=== PATIENT | female | born 1985 | race Caucasian/White ===

== ENCOUNTER 2018-02-27 12:09 | Outpatient (CLI) | payer BC, OTHER ==
[~2018-02-27] VITALS: Ht 177.8 cm; Wt 138.6 kg
[2018-02-27 12:47] LABS: BASOPHILS # (AUTO) 0.02 x10^3/uL (0-0.1); BASOPHILS % (AUTO) 0 % (0-1); EOSINOPHILS # (AUTO) 0.06 x10^3/uL (0-0.4); EOSINOPHILS % (AUTO) 1 % (1-7); LYMPHOCYTES # (AUTO) 1.69 x10^3/uL (1-3.4); LYMPHOCYTES % (AUTO) 17 % (22-44); MD NO; MEAN CORPUSCULAR HEMOGLOBIN 27.1 pg (27.0-34.8); MEAN PLATELET VOLUME 9.3 fL (7.4-10.4); MONOCYTES # (AUTO) 0.51 x10^3/uL (0.2-0.8); MONOCYTES % (AUTO) 5 % (2-9); NEUTROPHILS # (AUTO) 7.46 x10^3/uL (1.8-6.8); NEUTROPHILS % (AUTO) 77 % (42-75); PLATELET COUNT 230 x10^3/uL (130-400); RED BLOOD COUNT 4.22 x10^6/uL (3.82-5.3); RED CELL DISTRIBUTION WIDTH 14.5 % (9.6-15.2)
[2018-02-27 12:53] LABS: ALANINE AMINOTRANSFERASE 15 U/L (12-78); ALBUMIN 2.7 g/dL (3.4-5.0); ANION GAP 9 mmol/L (5-15); CALCIUM 8.3 mg/dL (8.5-10.1); CHLORIDE 110 mmol/L (98-107); CREATININE 0.68 mg/dL (0.55-1.02)
[2018-02-27 12:55] LABS: ALKALINE PHOSPHATASE 86 U/L (45-117); BILIRUBIN,TOTAL 0.3 mg/dL (0.2-1.0); TOTAL PROTEIN 6.8 g/dL (6.4-8.2)
[2018-02-27 12:56] LABS: BILIRUBIN, DIRECT < 0.1 mg/dL (0.1-0.2)
[2018-02-27 13:18] LABS: MICROSCOPIC INDICATED
== END 2018-02-27 14:15 | disposition home or self-care (01) ==
LOC: LDOP 12:09
PROVIDERS: ATTEND Obstetrics & Gynecology
DX: O13.3 Gestational [pregnancy-induced] hypertension without significant proteinuria, third trimester (principal); O14.93 Unspecified pre-eclampsia, third trimester; Z3A.37 37 weeks gestation of pregnancy
CPT/HCPCS: 36415; 59025; 80053; 81001; 81050; 82248; 82570; 84156; 84550; 85025; 99201; G0463

== ENCOUNTER 2018-03-08 08:11 | Inpatient (IN) | payer OTHER ==
[~2018-03-08] VITALS: Ht 177.8 cm; Wt 137.7 kg
[2018-03-08] MEDS ORDERED: LACTATED RINGERS 1,000 ML IV SCH ×2 (08:13→08:30)
[2018-03-08] MEDS ORDERED: OXYTOCIN 30U/ 0.9% NaCL 500ML 500 ML IV SCH (08:13)
[2018-03-08 08:18] VITALS: BP 123/86
[2018-03-08] MEDS ORDERED: PLEASE ENTER HEIGHT AND WEIGHT MC SCH (08:30)
[2018-03-08] MEDS ORDERED: METOCLOPRAMIDE 5 MG/ML, 2ML IV ONE (08:30)
[2018-03-08] MEDS ORDERED: LACTATED RINGERS 1,000 ML IVBOLUS ONE (08:30)
[2018-03-08] MEDS ORDERED: SODIUM CITRATE/CITRIC ACID 30 ML UDC PO ONE (08:30)
[2018-03-08] MEDS ORDERED: PREN1TAB60 PO (08:35)
[2018-03-08 08:56] LABS: BASOPHILS # (AUTO) 0.03 x10^3/uL (0-0.1); BASOPHILS % (AUTO) 0 % (0-1); EOSINOPHILS # (AUTO) 0.05 x10^3/uL (0-0.4); EOSINOPHILS % (AUTO) 1 % (1-7); LYMPHOCYTES # (AUTO) 1.52 x10^3/uL (1-3.4); LYMPHOCYTES % (AUTO) 19 % (22-44); MD NO; MEAN CORPUSCULAR HEMOGLOBIN 27.4 pg (27.0-34.8); MEAN CORPUSCULAR HGB CONC 33.1 g/dL (32.4-35.8); MEAN CORPUSCULAR VOLUME 82.8 fL (80-100); MEAN PLATELET VOLUME 9.6 fL (7.4-10.4); MONOCYTES # (AUTO) 0.44 x10^3/uL (0.2-0.8); MONOCYTES % (AUTO) 6 % (2-9); NEUTROPHILS % (AUTO) 74 % (42-75); PLATELET COUNT 216 x10^3/uL (130-400); RED BLOOD COUNT 4.13 x10^6/uL (3.82-5.3); RED CELL DISTRIBUTION WIDTH 14.4 % (9.6-15.2)
[2018-03-08] MEDS ORDERED: OXYTOCIN 10 UNITS/ML, 1ML ONE (09:12)
[2018-03-08] MEDS ORDERED: CEFAZOLIN 1,000 MG ONE ×2 (09:12→09:49)
[2018-03-08] MEDS ORDERED: NEWBORN KIT ONE (09:12)
[2018-03-08] MEDS ORDERED: METOCLOPRAMIDE 5 MG/ML, 2ML ONE (09:12)
[2018-03-08] MEDS ORDERED: SODIUM CITRATE/CITRIC ACID 30 ML UDC ONE (09:12)
[2018-03-08] MEDS ORDERED: FENTANYL PF 100 MCG/2ML ONE (09:13)
[2018-03-08] MEDS ORDERED: OXYTOCIN 30U/ 0.9% NaCL 500ML 500 ML ONE (09:13)
[2018-03-08] MEDS ORDERED: KETOROLAC 30 MG/1 ML ONE (09:49)
[2018-03-08] MEDS: OXYTOCIN 30U/ 0.9% NaCL 500ML 500 ML IV SCH ×2 (11:27→21:27)
[2018-03-08] MEDS: LACTATED RINGERS 1,000 ML IV SCH ×4 (11:27→21:27)
[2018-03-08] MEDS ORDERED: MISOPROSTOL 200 MCG TABLET PO PRN (11:30)
[2018-03-08] MEDS ORDERED: MORPHINE SULFATE 4 MG/ML, 1ML IVPush PRN (11:30)
[2018-03-08] MEDS ORDERED: ONDANSETRON 2MG/ML, 2ML IV PRN ×2 (11:30)
[2018-03-08] MEDS ORDERED: OXYcodone 5 MG/5 ML ORAL.SOL UDC PO PRN (11:30)
[2018-03-08] MEDS: PRENATAL VIT/IRON/FA 1 EACH TABLET PO SCH (11:30)
[2018-03-08] MEDS: KETOROLAC 30 MG/1 ML IV SCH ×2 (11:30→17:38)
[2018-03-08] MEDS ORDERED: morphine SULFATE 10 MG/ML, 1ML IVPush PRN ×2 (11:30)
[2018-03-08] MEDS ORDERED: FENTANYL PF 100 MCG/2ML IV PRN (11:30)
[2018-03-08] MEDS ORDERED: PROMETHAZINE 25 MG/ML, 1ML IV PRN (11:30)
[2018-03-08] MEDS ORDERED: MEPERIDINE/PF 25MG/0.5ML IVPush PRN (11:30)
[2018-03-08] MEDS ORDERED: SIMETHICONE 80 MG CHEW TAB PO PRN (11:30)
[2018-03-08] MEDS ORDERED: OXYcodone 5 MG/5 ML ORAL.SOL UDC ONE (12:03)
[2018-03-08 13:30] VITALS: BP 124/78
[2018-03-08 17:00] VITALS: BP 142/78
[2018-03-08] MEDS: OXYcodone IR 5MG TABLET PO PRN (17:39)
[2018-03-08 18:48] LABS: BASOPHILS # (AUTO) 0.03 x10^3/uL (0-0.1); BASOPHILS % (AUTO) 0 % (0-1); EOSINOPHILS # (AUTO) 0.03 x10^3/uL (0-0.4); EOSINOPHILS % (AUTO) 0 % (1-7); LYMPHOCYTES # (AUTO) 2.01 x10^3/uL (1-3.4); LYMPHOCYTES % (AUTO) 17 % (22-44); MD NO; MEAN CORPUSCULAR HEMOGLOBIN 27.8 pg (27.0-34.8); MEAN CORPUSCULAR HGB CONC 33.3 g/dL (32.4-35.8); MEAN CORPUSCULAR VOLUME 83.7 fL (80-100); MEAN PLATELET VOLUME 9.6 fL (7.4-10.4); MONOCYTES # (AUTO) 0.52 x10^3/uL (0.2-0.8); MONOCYTES % (AUTO) 4 % (2-9); NEUTROPHILS # (AUTO) 9.51 x10^3/uL (1.8-6.8); NEUTROPHILS % (AUTO) 79 % (42-75); PLATELET COUNT 195 x10^3/uL (130-400); RED BLOOD COUNT 3.75 x10^6/uL (3.82-5.3); RED CELL DISTRIBUTION WIDTH 14.5 % (9.6-15.2)
[2018-03-08 20:06] VITALS: BP 134/83
[2018-03-08] MEDS: DOCUSATE 100 MG CAPSULE PO PRN (21:25)
[2018-03-08] MEDS: OXYcodone/APAP 5/325MG TABLET PO PRN (21:26)
[2018-03-09 00:01] VITALS: BP 110/72
[2018-03-09] MEDS: KETOROLAC 30 MG/1 ML IV SCH ×4 (00:26→18:26)
[2018-03-09] MEDS: LACTATED RINGERS 1,000 ML IV SCH ×4 (03:27→17:27)
[2018-03-09 03:56] VITALS: BP 133/84
[2018-03-09] MEDS: OXYcodone IR 5MG TABLET PO PRN ×4 (05:22→21:57)
[2018-03-09] MEDS: OXYTOCIN 30U/ 0.9% NaCL 500ML 500 ML IV SCH ×2 (07:27→17:27)
[2018-03-09 07:45] VITALS: BP 138/81
[2018-03-09] MEDS: PRENATAL VIT/IRON/FA 1 EACH TABLET PO SCH (09:00)
[2018-03-09] MEDS: DOCUSATE 100 MG CAPSULE PO PRN ×2 (09:27→21:57)
[2018-03-09] MEDS: OXYcodone/APAP 5/325MG TABLET PO PRN (12:32)
[2018-03-09 20:10] VITALS: BP 129/83
[2018-03-10] MEDS: KETOROLAC 30 MG/1 ML IV SCH ×2 (00:55→08:29)
[2018-03-10] MEDS: OXYcodone/APAP 5/325MG TABLET PO PRN ×2 (07:49→14:18)
[2018-03-10] MEDS: PRENATAL VIT/IRON/FA 1 EACH TABLET PO SCH (07:49)
[2018-03-10 08:03] VITALS: BP 122/78
[2018-03-10] MEDS: DOCUSATE 100 MG CAPSULE PO PRN (08:29)
[2018-03-10] MEDS ORDERED: MEASLES,MUMPS&RUBELLA VACC/PF 0.5 ML SQ-VACC ONE ×2 (17:23→18:00)
[2018-03-10 19:35] VITALS: BP 137/82
[2018-03-11] MEDS: OXYcodone/APAP 5/325MG TABLET PO PRN (00:57)
[2018-03-11] MEDS: DOCUSATE 100 MG CAPSULE PO PRN ×2 (00:57→07:58)
[2018-03-11] MEDS: IBUPROFEN 600 MG TABLET PO PRN ×2 (00:57→10:44)
[2018-03-11] MEDS: PRENATAL VIT/IRON/FA 1 EACH TABLET PO SCH (07:58)
[2018-03-11 08:12] VITALS: BP 133/84
[2018-03-11] MEDS ORDERED: IBUP-1222 PO (15:50)
[2018-03-11] MEDS ORDERED: OXYC-302 PO (15:51)
== END 2018-03-11 17:30 | disposition home or self-care (01) | DRG 765 ==
LOC: LDIP 08:11 → 2NW 13:37
PROVIDERS: ADMIT Obstetrics & Gynecology; ATTEND Obstetrics & Gynecology
PROC: 10D00Z1 Extraction of Products of Conception, Low, Open Approach (ICD-10-PCS; principal; 2018-03-08)
DX: O99.214 Obesity complicating childbirth (principal); Z68.41 Body mass index [BMI] 40.0-44.9, adult; Z37.0 Single live birth; Z3A.39 39 weeks gestation of pregnancy; J45.909 Unspecified asthma, uncomplicated; O99.52 Diseases of the respiratory system complicating childbirth; O69.81X0 Labor and delivery complicated by cord around neck, without compression, not applicable or unspecified; Z82.49 Family history of ischemic heart disease and other diseases of the circulatory system; Z83.3 Family history of diabetes mellitus; E66.9 Obesity, unspecified; Z23 Encounter for immunization; Z87.440 Personal history of urinary (tract) infections
CPT/HCPCS: 36415; 85025; 86850; 86900; J0690; J1885; J3010; J2270; J2590; J2765; J7120